=== PATIENT | male | born 1990 | race Caucasian/White ===

== ENCOUNTER 2017-04-22 14:16 | Emergency (ER) | payer SELFPAY ==
[~2017-04-22] VITALS: Ht 193 cm; Wt 72.6 kg
[~2017-04-22 14:16] MED LIST: DIAZ5TAB4 PO; DIVA500T2 PO
[2017-04-22 14:18] VITALS: BP 126/85
[2017-04-22] MEDS ORDERED: IBUP-1007 PO (14:31)
[2017-04-22] MEDS ORDERED: CLIN150C14 PO (14:31)
[2017-04-22] MEDS ORDERED: HYDR-971 PO (14:31)
[2017-04-22] MEDS ORDERED: CHLO15MO2 PO (14:31)
--- NOTE | 2017-04-22 14:43 | PHYS DOC ---
Past Medical History Past Medical History: Bipolar, Schizophrenia, Other Additional Past Medical Histor: MS, Enlarged heart Past Surgical History: Other Additional Past Surgical Histo: shoulders Alcohol Use: Occasionally Drug Use: None Adult General Chief Complaint Chief Complaint: DENTAL PROBLEM HPI HPI Patient is a 26 year old male who presents with right lower dental pain of 3 days. Patient has poor dentition with a tooth that recently fractured off at the gumline. Patient had a fever yesterday, no fever today, not taking pain medicine at home, no active dentist. Review of Systems Review of Systems Constitutional: Denies fever or chills [] Eyes: Denies eye pain [] HENT: Denies nasal congestion or sore throat [] Respiratory: Denies cough or shortness of breath [] Cardiovascular: Denies chest pain GI: Denies abdominal pain, nausea, vomiting, or change in stools : Denies dysuria or hematuria [] Musculoskeletal: Denies back pain Integument: Denies rash Neurologic: Denies headache, focal weakness or sensory changes [] Allergies Allergies Allergies Coded Allergies Type Severity Reaction Last Updated Verified codeine Allergy Intermediate 07/20/14 Yes fentanyl Allergy Intermediate 07/20/14 Yes prednisone Allergy Intermediate 07/20/14 Yes Physical Exam Physical Exam Constitutional: Well developed, well nourished, no acute distress, non-toxic appearance. [] HENT: Normocephalic, atraumatic, bilateral external ears normal, oropharynx moist, right lower gum edema without focal fluctuance, erythema noted, no trismus, poor dentition throughout Eyes: PERRLA, EOMI, conjunctiva normal, no discharge. [] Neck: Normal range of motion, no tenderness, supple, no stridor. [] Cardiovascular:Heart rate regular rate Lungs & Thorax: No respiratory distress Neurologic: Alert and oriented X 3, normal motor function, normal sensory function, no focal deficits noted. [] Psychologic: Affect normal, judgement normal, mood normal. [] Current Patient Data Vital Signs Vital Signs Date Time Temp Pulse Resp B/P (MAP) Pulse Ox O2 Delivery O2 Flow Rate FiO2 04/22/17 14:18 98.2 95 16 98 Room Air 98.2 EKG EKG [] Radiology/Procedures Radiology/Procedures [] Course & Med Decision Making Course & Med Decision Making Pertinent Labs and Imaging studies reviewed. (See chart for details) No localized abscess appreciated, though likely present. We'll treat with by mouth clindamycin as patient has penicillin allergy. Patient was given Peridex and ibuprofen with few [place] for breakthrough pain, dental resource list given. Dragjennifer Disclaimer Matthew Disclaimer This electronic medical record was generated, in whole or in part, using a voice recognition dictation system. Departure Departure Impression: Primary Impression: Dental infection Disposition: 01 HOME, SELF-CARE Condition: STABLE Patient Instructions: Dental Abscess, Dental Caries-Brief Scripts Chlorhexidine Gluconate (PERIDEX) 15 Ml Mouthwash 15 ML PO BID, #473 ML swish for 30 sec and spit Prov: ALPA TEMPLE MD 04/22/17 Clindamycin Hcl (CLINDAMYCIN HCL) 150 Mg Capsule 450 MG PO TID for 10 Days, #90 CAP Prov: ALPA TEMPLE MD 04/22/17 Hydrocodone/Apap 5-325 (NORCO 5-325 TABLET) 1 Each Tablet 1-2 EACH PO PRN Q6HRS Y for breakthrough pain, #156 as needed for pain Prov: ALPA TEMPLE MD 04/22/17 Ibuprofen (IBUPROFEN) 600 Mg Tablet 600 MG PO PRN Q6HRS Y for PAIN, #20 TAB take with food or milk Prov: ALPA TEMPLE MD 04/22/17 ALPA TEMPLE MD Apr 22, 2017 14:43
== END 2017-04-22 14:34 | disposition home or self-care (01) ==
LOC: ER 14:16
DX: K04.7 Periapical abscess without sinus (principal); F20.9 Schizophrenia, unspecified; F31.9 Bipolar disorder, unspecified; G35 Multiple sclerosis; I51.7 Cardiomegaly; Z88.5 Allergy status to narcotic agent; Z88.8 Allergy status to other drugs, medicaments and biological substances; Z88.4 Allergy status to anesthetic agent
CPT/HCPCS: 99283

== ENCOUNTER 2020-09-02 15:55 | Inpatient (IN) | payer SELFPAY ==
[~2020-09-02] VITALS: Ht 175.3 cm; Wt 73.3 kg
[~2020-09-02 15:55] MED LIST changes: +CHLO15MO2 PO; +CLIN150C15 PO; +HYDR-3164 PO; +IBUP-1007 PO
[2020-09-02] MEDS ORDERED: diphenhydrAMINE 50 MG/ML VIAL ONE (16:12)
[2020-09-02] MEDS ORDERED: HALOPERIDOL LACTATE 5 MG/ML VIAL. ONE (16:12)
[2020-09-02] MEDS ORDERED: HALOPERIDOL LACTATE 5 MG/ML VIAL. IVP ONE (16:30)
[2020-09-02] MEDS ORDERED: diphenhydrAMINE 50 MG/ML VIAL IVP ONE ×2 (16:30→19:45)
[2020-09-02] MEDS ORDERED: IV NORMAL SALINE 1000ML BAG 1,000 ML IV ONE (16:30)
[2020-09-02 16:33] LABS: BASO # 0.1 x10^3/uL (0.0-0.2); BASO % 1 % (0-3); EOS % 0 % (0-3); HEMATOCRIT 41.4 % (39.0-53.0); HEMOGLOBIN 14.3 g/dL (13.0-17.5); LYMPH # 1.3 x10^3/uL (1.0-4.8); LYMPH % 10 % (24-48); MEAN CORPUSCULAR HEMOGLOBIN 31 pg (25-35); MEAN CORPUSCULAR HGB CONC 35 g/dL (31-37); MEAN CORPUSCULAR VOLUME 89 fL (79-100); MONO % 7 % (0-9); NEUT # 10.9 x10^3/uL (1.8-7.7); NEUT % 82 % (31-73); PLATELET COUNT 275 x10^3/uL (140-400); RED BLOOD COUNT 4.63 x10^6/uL (4.30-5.70); RED CELL DISTRIBUTION WIDTH 13.7 % (11.5-14.5); WHITE BLOOD COUNT 13.3 x10^3/uL (4.0-11.0)
--- NOTE | 2020-09-02 16:34 | PHYS DOC ---
Past Medical History Past Medical History: Bipolar, Schizophrenia, Other Additional Past Medical Histor: MS, Enlarged heart Past Surgical History: Other Additional Past Surgical Histo: shoulders Smoking Status: Current Every Day Smoker Alcohol Use: Occasionally Drug Use: None General Adult EDM: Chief Complaint: SUBSTANCE ABUSE HPI: HPI: 29-year-old male past medical history of schizophrenia, presents to the ED brought in by EMS after patient was found acting bizarre at work and removing his pants. Patient was combative and required PD to physically restrain. IV was placed and patient was given 250 mg ketamine IV. told EMS patient has been off his psych medications for a while and that this behavior started yesterday. EMS reports suspected K2 & methamphetamines. Review of Systems: Review of Systems: Unobtainable due to mental status Heart Score: Risk Factors: Risk Factors: DM, Current or recent (<one month) smoker, HTN, HLP, family history of CAD, obesity. Risk Scores: Score 0 - 3: 2.5% MACE over next 6 weeks - Discharge Home Score 4 - 6: 20.3% MACE over next 6 weeks - Admit for Clinical Observation Score 7 - 10: 72.7% MACE over next 6 weeks - Early Invasive Strategies Current Medications: Current Medications Medications (Trade) Dose Ordered Sig/Irena Start Time Stop Time Status Last Admin Dose Admin Diphenhydramine HCl (Benadryl) 50 mg 1X ONCE 09/02/20 16:30 09/02/20 16:31 Haloperidol Lactate (Haldol Inj) 10 mg 1X ONCE 09/02/20 16:30 09/02/20 16:31 Sodium Chloride 1,000 ml @ 1,000 mls/hr 1X ONCE 09/02/20 16:30 09/02/20 17:29 Allergies: Allergies: Allergies Coded Allergies Type Severity Reaction Last Updated Verified codeine Allergy Intermediate 07/20/14 Yes fentanyl Allergy Intermediate 07/20/14 Yes prednisone Allergy Intermediate 07/20/14 Yes Physical Exam: PE: Constitutional: Unkept, disheveled appearance, warm to the touch, does follow some commands -sticks tongue out, shakes head left/right when asks if he's in any pain HENT: No obvious hematoma, small amounts of blood on patient's pillow, dried blood around both nares/lips, no septal hematoma, very dry mucous membranes Eyes: PERRLA, vertical nystagmus, EOMI, conjunctiva normal, Neck: Normal range of motion, supple, Cardiovascular: S1/2 present, tachycardic Lungs & Thorax: Speaking in full sentences, bilateral equal chest rise, no tachypnea or increased work of breathing Abdomen: soft, no tenderness, Skin: Warm/hot to the touch, one small abrasion over back, no diaphoresis, large scar vertical over right scapula Back: No midline step offs, no CVA tenderness. [] Extremities: No tenderness, no cyanosis, no lower extremity edema Neurologic: [id number] = GCS12 alert and oriented X 3, normal motor function, normal sensory function, no focal deficits noted. [] Psychologic: writhing movements/kicking in stretcher, agitated/delirious, cannot verbally de-escalate EKG: EKG: [] Radiology/Procedures: Radiology/Procedures: IMAGING REPORT Signed PATIENT: MAINE QUIJANO ACCOUNT: [id number] : 1990 LOCATION: ER AGE: 29 SEX: M EXAM STATUS: PRE ER ORD. PHYSICIAN: BERNARDA THORPE DO REASON: ams PROCEDURE: CT HEAD AND CERVICAL SPINE WO Exam: CT head and cervical spine without contrast INDICATION: Altered mental status TECHNIQUE: Sequential axial images through the head and cervical spine were obtained without the administration of IV contrast. Comparisons: None FINDINGS: Head: No focal parenchymal lesion or hemorrhage is identified. There is no midline shift or sulcal effacement. No acute vascular territory infarction is identified. Sung-white distinction is preserved. The ventricular system is within normal limits without compression hydr ocephalus. The basal cisterns are well maintained. The visualized portions of the paranasal sinuses and mastoid air cells are well- pneumatized. No acute fractures. Cervical spine: Straightening of cervical spine which may positional. Vertebral body heights are well-maintained. Fracture to the cervical spine is not identified. Multilevel spondylotic change in cervical spine with degenerative disc disease greatest at C5-C6. Visualized paraspinal soft tissues are unremarkable. IMPRESSION: 1. No acute intracranial abnormality. 2. Negative CT C-spine for acute traumatic injury. Exposure: One or more of the following in the visualized dose reduction techniques were utilized for this examination: 1. Automated exposure control 2. Adjustment of the MA and/or KV according to patient size Use of iterative of reconstructive technique Electronically signed by: Kati Mares MD (09/02/2020 5:37 PM) [facility] DICTATED and SIGNED BY: KATI MARES MD DATE: 09/02/20 [id number] IMAGING REPORT Signed PATIENT: MAINE QUIJANO ACCOUNT: [id number] : 1990 LOCATION: ER AGE: 29 SEX: M EXAM STATUS: PRE ER ORD. PHYSICIAN: BERNARDA THORPE DO REASON: ams PROCEDURE: CHEST AP ONLY XR CHEST 1V Clinical Indication: Reason: ams Comparison: AP chest September 14, 2012. Findings: The cardiomediastinal silhouette is normal. Lungs are clear. There is no pneumothorax. No pleural effusion is appreciated. No acute bone abnormality. Redemonstrated cerclage wires of posterior ribs bilaterally, third through seventh ribs. Right seventh rib cerclage wires are fractured. IMPRESSION: No acute cardiopulmonary process. Electronically signed by: Gregory Bond MD (09/02/2020 5:59 PM) [facility] DICTATED and SIGNED BY: GREGORY BOND MD DATE: 09/02/20 [id number] Impression: 1700: Pt seen running in ed. Had been sedated upon transfer to ct scanner. Now awake and not directable. Code sung called. Patient was restrained back to his room. Patient asked where he is and nods his head yes to using methamphetamine today. Another IV was placed (patient removed the first 1) and 5 mg Versed IV was given. Patient was placed on cardio monitor with pulse oximetry. Patient was then transferred immediately to CAT scan. Course & Med Decision Making: Course & Med Decision Making Pertinent Labs and Imaging studies reviewed. (See chart for details) Concern for acute agitated delirium secondary to polysubstance abuse (meth/amp, benzo, marijuana) with underlying schizophrenia that required sedation protocol. Labs show rhabdomyolysis and acute kidney injury. Patient was started on IV fluids and will admit for further medical management on one-to-one close observation for his safety until patient has medical decision-making capacity or has had a PAT team assessment. Matthew Disclaimer: Matthew Disclaimer: This electronic medical record was generated, in whole or in part, using a voice recognition dictation system. Departure Departure Impression: Primary Impression: Agitation requiring sedation protocol Additional Impressions: Schizophrenia Noncompliance with medications Rhabdomyolysis Acute kidney injury Disposition: 09 ADMITTED INPT THIS HOSP Admitting Physician: RANCHO (Dr. Flanagan) Condition: STABLE Referrals: NO PCP (PCP) BERNARDA THORPE DO Sep 02, 2020 16:34
[2020-09-02 16:42] LABS: BARBITURATES NEG (NEG); BENZODIAZEPINES POS (NEG); CANNABINOIDS POS (NEG); COCAINE NEG (NEG); METHADONE NEG (NEG); OPIATES NEG (NEG); PHENCYCLIDINE NEG (NEG)
[2020-09-02 16:45] LABS: AMPHETAMINE/METHAMPHETAMINE POS (NEG)
[2020-09-02 16:51] LABS: CALCIUM 8.8 mg/dL (8.5-10.1); CREATININE 1.4 mg/dL (0.7-1.3); GFR 59.1; POTASSIUM 3.1 mmol/L (3.5-5.1)
[2020-09-02] MEDS ORDERED: MIDAZOLAM HCL/PF 5 MG/5 ML VIAL. ONE (16:54)
[2020-09-02] MEDS ORDERED: MIDAZOLAM HCL/PF 5 MG/5 ML VIAL. NS ONE (17:00)
[2020-09-02 17:07] LABS: ALBUMIN/GLOBULIN RATIO 1.3 (1.0-1.7); TOTAL BILIRUBIN 1.2 mg/dL (0.2-1.0)
--- NOTE | 2020-09-02 17:39 | RAD ---
Exam: CT head and cervical spine without contrast INDICATION: Altered mental status TECHNIQUE: Sequential axial images through the head and cervical spine were obtained without the admi nistration of IV contrast. Comparisons: None FINDINGS: Head: No focal parenchymal lesion or hemorrhage is identified. There is no midline shift or sulcal effaceme nt. No acute vascular territory infarction is identified. Sung-white distinction is preserved. The ventricular system is within normal limits without compression hydrocephalus. The basal cisterns are well maintained. The visualized portions of the paranasal sinuses and mastoid air cells are well-pneumatized. No acute fractures. Cervical spine: Straightening of cervical spine which may positional. Vertebral body heights are well-maintained. Fracture to the cervical spine is not identified. Multilevel spondylotic change in cervical spine with degenerative disc disease greatest at C5-C6. Visualized paraspinal soft tissues are unremarkable. IMPRESSION: 1. No acute intracranial abnormality. 2. Negative CT C-spine for acute traumatic injury. Exposure: One or more of the following in the visualized dose reduction techniques were utilized for this examination: 1. Automated exposure control 2. Adjustment of the MA and/or KV according to patient size Use of iterative of reconstructive technique Electronically signed by: Kati Starr MD (09/02/2020 5:37 PM) [facility]
--- NOTE | 2020-09-02 18:02 | RAD ---
XR CHEST 1V Clinical Indication: Reason: ams Comparison: AP chest September 14, 2012. Findings: The cardiomediastinal silhouette is normal. Lungs are clear. There is no pneumothorax. No pleural eff usion is appreciated. No acute bone abnormality. Redemonstrated cerclage wires of posterior ribs bila terally, third through seventh ribs. Right seventh rib cerclage wires are fractured. IMPRESSION: No acute cardiopulmonary process. Electronically signed by: Gregory Bond MD (09/02/2020 5:59 PM) [facility]
[2020-09-02] MEDS ORDERED: ONDANSETRON PF 4 MG/2 ML VIAL. IV PRN (18:15)
[2020-09-02] MEDS ORDERED: OLANZapine IM 10 MG VIAL. IM ONE ×2 (19:43→20:00)
[2020-09-02] MEDS ORDERED: HALOPERIDOL LACTATE 5 MG/ML VIAL. IM ONE (19:45)
--- NOTE | 2020-09-02 21:25 | NUR ---
ADMISSION NOTE: Patient arrived to room 670 via gurney accompanied by security staff x2 and ED staff x1. Patient restrained to gurney. Patient transferred to room bed, restraints reapplied, tele monitor applied. Patient calm at this time, eyes closed. Will page MD for further orders.
[2020-09-02 21:30] VITALS: BP 113/71
--- NOTE | 2020-09-02 21:50 | NUR ---
Patient's restraints removed at approximately this time per verbal MD order (Dr. Flanagan).
[2020-09-02] MEDS ORDERED: ZIPRASIDONE IM 20 MG VIAL. IM PRN (22:30)
--- NOTE | 2020-09-02 22:45 | HP ---
ADMIT DATE: 09/02/2020 CHIEF COMPLAINT: Substance abuse. HISTORY OF PRESENT ILLNESS: The patient is a pleasant 29-year-old male who has schizophrenia, presented to the ER with substance abuse. He was combative and required police department to physically restrain him. While in the ER, he got 250 mg of IV ketamine and then we had to put him in restraints. We have now given him IM Zyprexa 10 mg and that seems to have helped quite a bit. We have also ordered some Ativan and some Geodon. He has already gotten some Benadryl. Basically, he is now being examined on the medical floor, where we are hoping to get him out of the restraints. He is much more calm now; in fact, he is sleeping. PAST MEDICAL HISTORY: Bipolar and schizophrenia, substance abuse, enlarged heart, shoulder surgery, tobacco abuse. ALLERGIES: CODEINE, FENTANYL AND PREDNISONE. FAMILY HISTORY: Drug abuse. SOCIAL HISTORY: He smokes, drinks and takes drugs. MEDICATIONS: Reviewed, please refer to the MRAD. REVIEW OF SYSTEMS: Unable to obtain, he is sleeping. PHYSICAL EXAMINATION: VITALS: Within normal limits and are stable. GENERAL: He is sleeping. HEENT: Normal cephalic atraumatic, external auditory canals are patent EYES: Extraocular muscles are intact, pupils are equally round and reactive to light and accommodation MUSCULOSKELETAL: Well developed, well nourished, good range of motion ENDOCRINE: No thyromegaly was palpated LYMPHATICS: No cervical chain or axillary nodes were noted HEMATOPOIETIC: No bruising NECK: Supple, no JVD, no thyromegaly was noted. LUNGS: Clear to auscultation in all lung morris without rhonchi or wheezing. HEART: RRR, S1, S2 present. Peripheral pulses intact, no obvious murmurs were noted. ABDOMEN: Soft, nontender. Positive bowel sounds no organomegaly, normal bowel sounds. EXTREMITIES: Without any cyanosis, clubbing, or edema. Pedal pulses intact, Homans sign is negative. NEUROLOGIC: He is sleeping. PSYCHIATRIC: He is sleeping. SKIN: No ulcerations or rashes, good skin turgor, no jaundice. VASCULAR: Good capillary refill, neurovascular bundle appears to be intact. LABORATORY DATA: His white count is 13.3. Potassium 3.1. ASSESSMENT AND PLAN: Resolving psychosis and hypokalemia. The patient will be admitted. We will replace his potassium, IV fluids, mini Marks, mini Saavedra, mini Curry, mini [place], mini Evans and tomorrow, we will start backing off on some of the meds and have him wake up and see if he feels better. SALLY FORRESTER DO DR: GINO/catrachita JOB#: [id number] / [id number]
[2020-09-02 22:53] VITALS: BP 115/68
[2020-09-03 03:00] VITALS: BP 122/71
[2020-09-03] MEDS: IV NORMAL SALINE 1000ML BAG 1,000 ML IV SCH ×2 (03:35→14:15)
--- NOTE | 2020-09-03 05:52 | NUR ---
Patient has been obtunded entire shift, unable to complete admission questionnaire. Will pass along info to day RN.
[2020-09-03] MEDS: OLANZapine IM 10 MG VIAL. IM SCH ×3 (06:00→22:00)
[2020-09-03 07:00] VITALS: BP 114/61
--- NOTE | 2020-09-03 10:30 | PDOC ---
PROGRESS NOTES Date of Service: DATE: 09/03/20 TIME: 10:27 Chief Complaint Chief Complaint acute toxic encephalopathy Resolving psychosis, hx schizophrenia COVID isolation, PUI hypokalemia. History of Present Illness History of Present Illness reolaced, his potassium, IV fluids, p.r.n. Selina, p.r.n. today he is much more pleasant, overnight he has had 2 CODE gutierrez issues, security called, he needed 4 pt restraints, better now, sleepy, has drank some juice will cont IV fluid, change to D5 half with K Vitals Vitals Vital Signs Date Time Temp Pulse Resp B/P (MAP) Pulse Ox O2 Delivery O2 Flow Rate FiO2 09/03/20 07:00 97.6 71 18 114/61 (78) 99 Room Air 97.6 Physical Exam General: Alert, Cooperative, Other Heart: Regular rate Lungs: Clear, Wheezing Abdomen: Soft Extremities: No clubbing Skin: No rashes, No breakdown Labs LABS Laboratory Tests Test 09/02/20 16:00 09/02/20 16:05 White Blood Count 13.3 x10^3/uL (4.0-11.0) Red Blood Count 4.63 x10^6/uL (4.30-5.70) Hemoglobin 14.3 g/dL (13.0-17.5) Hematocrit 41.4 % (39.0-53.0) Mean Corpuscular Volume 89 fL (79-100) Mean Corpuscular Hemoglobin 31 pg (25-35) Mean Corpuscular Hemoglobin Concent 35 g/dL (31-37) Red Cell Distribution Width 13.7 % (11.5-14.5) Platelet Count 275 x10^3/uL (140-400) Neutrophils (%) (Auto) 82 % (31-73) Lymphocytes (%) (Auto) 10 % (24-48) Monocytes (%) (Auto) 7 % (0-9) Eosinophils (%) (Auto) 0 % (0-3) Basophils (%) (Auto) 1 % (0-3) Neutrophils # (Auto) 10.9 x10^3/uL (1.8-7.7) Lymphocytes # (Auto) 1.3 x10^3/uL (1.0-4.8) Monocytes # (Auto) 1.0 x10^3/uL (0.0-1.1) Eosinophils # (Auto) 0.0 x10^3/uL (0.0-0.7) Basophils # (Auto) 0.1 x10^3/uL (0.0-0.2) Sodium Level 142 mmol/L (136-145) Potassium Level 3.1 mmol/L (3.5-5.1) Chloride Level 105 mmol/L (98-107) Carbon Dioxide Level 25 mmol/L (21-32) Anion Gap 12 (6-14) Blood Urea Nitrogen 17 mg/dL (8-26) Creatinine 1.4 mg/dL (0.7-1.3) Estimated GFR (Cockcroft-Gault) 59.1 BUN/Creatinine Ratio 12 (6-20) Glucose Level 85 mg/dL (70-99) Calcium Level 8.8 mg/dL (8.5-10.1) Total Bilirubin 1.2 mg/dL (0.2-1.0) Aspartate Amino Transf (AST/SGOT) 99 U/L (15-37) Alanine Aminotransferase (ALT/SGPT) 61 U/L (16-63) Alkaline Phosphatase 62 U/L (46-116) Creatine Kinase 4458 U/L (39-308) Total Protein 7.0 g/dL (6.4-8.2) Albumin 4.0 g/dL (3.4-5.0) Albumin/Globulin Ratio 1.3 (1.0-1.7) Ethyl Alcohol Level < 10 mg/dL (0-10) Urine Opiates Screen Neg (NEG) Urine Methadone Screen Neg (NEG) Urine Barbiturates Neg (NEG) Urine Phencyclidine Screen Neg (NEG) Urine Amphetamine/Methamphetamine Pos (NEG) Urine Benzodiazepines Screen Pos (NEG) Urine Cocaine Screen Neg (NEG) Urine Cannabinoids Screen Pos (NEG) Urine Ethyl Alcohol Neg (NEG) Assessment and Plan Assessmemt and Plan Problems Medical Problems: (1) Acute kidney injury Status: Acute (2) Agitation requiring sedation protocol Status: Acute (3) Noncompliance with medications Status: Acute (4) Rhabdomyolysis Status: Acute (5) Schizophrenia Status: Acute Comment Review of Relevant I have reviewed the following items giancarlo (where applicable) has been applied. Labs Laboratory Tests Test 09/02/20 16:00 09/02/20 16:05 White Blood Count 13.3 x10^3/uL (4.0-11.0) Red Blood Count 4.63 x10^6/uL (4.30-5.70) Hemoglobin 14.3 g/dL (13.0-17.5) Hematocrit 41.4 % (39.0-53.0) Mean Corpuscular Volume 89 fL (79-100) Mean Corpuscular Hemoglobin 31 pg (25-35) Mean Corpuscular Hemoglobin Concent 35 g/dL (31-37) Red Cell Distribution Width 13.7 % (11.5-14.5) Platelet Count 275 x10^3/uL (140-400) Neutrophils (%) (Auto) 82 % (31-73) Lymphocytes (%) (Auto) 10 % (24-48) Monocytes (%) (Auto) 7 % (0-9) Eosinophils (%) (Auto) 0 % (0-3) Basophils (%) (Auto) 1 % (0-3) Neutrophils # (Auto) 10.9 x10^3/uL (1.8-7.7) Lymphocytes # (Auto) 1.3 x10^3/uL (1.0-4.8) Monocytes # (Auto) 1.0 x10^3/uL (0.0-1.1) Eosinophils # (Auto) 0.0 x10^3/uL (0.0-0.7) Basophils # (Auto) 0.1 x10^3/uL (0.0-0.2) Sodium Level 142 mmol/L (136-145) Potassium Level 3.1 mmol/L (3.5-5.1) Chloride Level 105 mmol/L (98-107) Carbon Dioxide Level 25 mmol/L (21-32) Anion Gap 12 (6-14) Blood Urea Nitrogen 17 mg/dL (8-26) Creatinine 1.4 mg/dL (0.7-1.3) Estimated GFR (Cockcroft-Gault) 59.1 BUN/Creatinine Ratio 12 (6-20) Glucose Level 85 mg/dL (70-99) Calcium Level 8.8 mg/dL (8.5-10.1) Total Bilirubin 1.2 mg/dL (0.2-1.0) Aspartate Amino Transf (AST/SGOT) 99 U/L (15-37) Alanine Aminotransferase (ALT/SGPT) 61 U/L (16-63) Alkaline Phosphatase 62 U/L (46-116) Creatine Kinase 4458 U/L (39-308) Total Protein 7.0 g/dL (6.4-8.2) Albumin 4.0 g/dL (3.4-5.0) Albumin/Globulin Ratio 1.3 (1.0-1.7) Ethyl Alcohol Level < 10 mg/dL (0-10) Urine Opiates Screen Neg (NEG) Urine Methadone Screen Neg (NEG) Urine Barbiturates Neg (NEG) Urine Phencyclidine Screen Neg (NEG) Urine Amphetamine/Methamphetamine Pos (NEG) Urine Benzodiazepines Screen Pos (NEG) Urine Cocaine Screen Neg (NEG) Urine Cannabinoids Screen Pos (NEG) Urine Ethyl Alcohol Neg (NEG) Laboratory Tests Test 09/02/20 16:00 09/02/20 16:05 White Blood Count 13.3 x10^3/uL (4.0-11.0) Red Blood Count 4.63 x10^6/uL (4.30-5.70) Hemoglobin 14.3 g/dL (13.0-17.5) Hematocrit 41.4 % (39.0-53.0) Mean Corpuscular Volume 89 fL (79-100) Mean Corpuscular Hemoglobin 31 pg (25-35) Mean Corpuscular Hemoglobin Concent 35 g/dL (31-37) Red Cell Distribution Width 13.7 % (11.5-14.5) Platelet Count 275 x10^3/uL (140-400) Neutrophils (%) (Auto) 82 % (31-73) Lymphocytes (%) (Auto) 10 % (24-48) Monocytes (%) (Auto) 7 % (0-9) Eosinophils (%) (Auto) 0 % (0-3) Basophils (%) (Auto) 1 % (0-3) Neutrophils # (Auto) 10.9 x10^3/uL (1.8-7.7) Lymphocytes # (Auto) 1.3 x10^3/uL (1.0-4.8) Monocytes # (Auto) 1.0 x10^3/uL (0.0-1.1) Eosinophils # (Auto) 0.0 x10^3/uL (0.0-0.7) Basophils # (Auto) 0.1 x10^3/uL (0.0-0.2) Sodium Level 142 mmol/L (136-145) Potassium Level 3.1 mmol/L (3.5-5.1) Chloride Level 105 mmol/L (98-107) Carbon Dioxide Level 25 mmol/L (21-32) Anion Gap 12 (6-14) Blood Urea Nitrogen 17 mg/dL (8-26) Creatinine 1.4 mg/dL (0.7-1.3) Estimated GFR (Cockcroft-Gault) 59.1 BUN/Creatinine Ratio 12 (6-20) Glucose Level 85 mg/dL (70-99) Calcium Level 8.8 mg/dL (8.5-10.1) Total Bilirubin 1.2 mg/dL (0.2-1.0) Aspartate Amino Transf (AST/SGOT) 99 U/L (15-37) Alanine Aminotransferase (ALT/SGPT) 61 U/L (16-63) Alkaline Phosphatase 62 U/L (46-116) Creatine Kinase 4458 U/L (39-308) Total Protein 7.0 g/dL (6.4-8.2) Albumin 4.0 g/dL (3.4-5.0) Albumin/Globulin Ratio 1.3 (1.0-1.7) Ethyl Alcohol Level < 10 mg/dL (0-10) Urine Opiates Screen Neg (NEG) Urine Methadone Screen Neg (NEG) Urine Barbiturates Neg (NEG) Urine Phencyclidine Screen Neg (NEG) Urine Amphetamine/Methamphetamine Pos (NEG) Urine Benzodiazepines Screen Pos (NEG) Urine Cocaine Screen Neg (NEG) Urine Cannabinoids Screen Pos (NEG) Urine Ethyl Alcohol Neg (NEG) Medications Current Medications Haloperidol Lactate (Haldol Inj) 5 mg STK-MED ONCE .ROUTE ; Start 09/02/20 at 16:12; Stop 09/02/20 at 16:12; Status DC Diphenhydramine HCl (Benadryl) 50 mg STK-MED ONCE .ROUTE ; Start 09/02/20 at 16:12; Stop 09/02/20 at 16:12; Status DC Haloperidol Lactate (Haldol Inj) 10 mg 1X ONCE IVP Last administered on 09/02/20at 16:37; Start 09/02/20 at 16:30; Stop 09/02/20 at 16:31; Status DC Diphenhydramine HCl (Benadryl) 50 mg 1X ONCE IVP Last administered on 09/02/20at 16:37; Start 09/02/20 at 16:30; Stop 09/02/20 at 16:31; Status DC Sodium Chloride 1,000 ml @ 1,000 mls/hr 1X ONCE IV Last administered on 09/02/20at 16:38; Start 09/02/20 at 16:30; Stop 09/02/20 at 17:29; Status DC Midazolam HCl (Versed) 5 mg 1X ONCE NS Last administered on 09/02/20at 17:19; Start 09/02/20 at 17:00; Stop 09/02/20 at 17:01; Status DC Midazolam HCl (Versed) 5 mg STK-MED ONCE .ROUTE ; Start 09/02/20 at 16:54; Stop 09/02/20 at 16:55; Status DC Ondansetron HCl (Zofran) 4 mg PRN Q8HRS PRN IV NAUSEA/VOMITING; Start 09/02/20 at 18:15; Stop 09/03/20 at 18:14 Sodium Chloride 1,000 ml @ 100 mls/hr Q10H IV Last administered on 09/03/20at 03:35; Start 09/02/20 at 18:15; Stop 09/03/20 at 18:14 Diphenhydramine HCl (Benadryl) 50 mg 1X ONCE IVP ; Start 09/02/20 at 19:45; Stop 09/02/20 at 20:11; Status DC Lorazepam (Ativan Inj) 2 mg 1X ONCE IVP ; Start 09/02/20 at 19:45; Stop 09/02/20 at 20:11; Status DC Haloperidol Lactate (Haldol Inj) 5 mg 1X ONCE IM ; Start 09/02/20 at 19:45; Stop 09/02/20 at 20:11; Status DC Olanzapine (ZyPREXA IM) 10 mg STK-MED ONCE IM ; Start 09/02/20 at 19:43; Stop at 19:44; Status DC Olanzapine (ZyPREXA IM) 10 mg 1X ONCE IM Last administered on 09/02/20at 21:07; Start 09/02/20 at 20:00; Stop 09/02/20 at 20:01; Status DC Lorazepam (Ativan Inj) 4 mg 1X ONCE IVP ; Start 09/02/20 at 20:45; Stop 09/02/20 at 20:46; Status DC Lorazepam (Ativan Inj) 4 mg PRN Q2HR PRN IVP ANXIETY / AGITATION; Start 09/02/20 at 21:45 Olanzapine (ZyPREXA IM) 10 mg Q8HRS IM ; Start 09/03/20 at 06:00 Ziprasidone (Geodon Im) 10 mg PRN BID PRN IM AGITATION; Start 09/02/20 at 22:30 Active Scripts Active Peridex (Chlorhexidine Gluconate) 15 Ml Mouthwash 15 Ml PO BID swish for 30 sec and spit Clindamycin Hcl 150 Mg Capsule 450 Mg PO TID 10 Days [place] 5-325 Tablet (Acetaminophen/Hydrocodone Bitart) 1 Each Tablet 1-2 Each PO PRN Q6HRS PRN as needed for pain Ibuprofen 600 Mg Tablet 600 Mg PO PRN Q6HRS PRN take with food or milk Reported Diazepam 5 Mg Tablet 1 Tab PO TID Depakote (Divalproex Sodium) 500 Mg Tablet. 1 Tab PO BID Vitals/I & O Vital Sign - Last 24 Hours 09/02/20 09/02/20 09/02/20 09/02/20 15:55 15:56 16:26 17:15 Temp 98.9 98.9 Pulse 110 110 95 89 Resp 18 B/P (MAP) 134/80 (98) 134/80 (98) 133/66 (88) 111/66 (81) Pulse Ox 99 100 100 98 O2 Delivery Room Air Room Air Room Air Room Air 09/02/20 09/02/20 09/02/20 09/02/20 17:26 17:56 18:26 19:26 Pulse 87 83 78 84 B/P (MAP) 106/64 (78) 114/69 (84) 123/77 (92) 115/72 (86) Pulse Ox 98 99 100 97 O2 Delivery Room Air Room Air Room Air Room Air 09/02/20 09/02/20 09/02/20 09/02/20 20:26 21:20 21:30 22:53 Temp 97.8 97.5 97.8 97.5 Pulse 70 78 18 Resp 18 18 B/P (MAP) 124/72 (89) 113/71 (85) 115/68 (84) Pulse Ox 100 94 95 O2 Delivery Room Air Room Air Room Air Room Air 09/03/20 09/03/20 03:00 07:00 Temp 97.7 97.6 97.7 97.6 Pulse 80 71 Resp 18 18 B/P (MAP) 122/71 (88) 114/61 (78) Pulse Ox 95 99 O2 Delivery Room Air Room Air Justicifation of Admission Dx: Justifications for Admission: Justification of Admission Dx: Yes (psychosis) KALINA SALGADO MD Sep 03, 2020 10:30
[2020-09-03 11:00] VITALS: BP 118/76
[2020-09-03] MEDS: POTASSIUM CL 20MEQ D5-0.45NACL 1,000 ML IV SCH ×2 (11:32→21:42)
--- NOTE | 2020-09-03 14:50 | NUR ---
SW following for discharge planning. Spoke with RN and reviewed chart. Pt admitted with agitated delirium. Pt has a hx of substance abuse as well as Bipolar and Schizophrenia. Pt positive for Meth and other substances on this admission. Pt combative and requiring restraint and a 1:1 at times. Pt on IV Ativan as well as Geodon and Zyprexa IM. Pt on room air, regular diet, COVID pending. Pt self-pay and [facility] is following. SW completed PAT referral to [facility]. SW following.
[2020-09-03 15:00] VITALS: BP 114/75
[2020-09-03 19:00] VITALS: BP 113/71
[2020-09-03 23:00] VITALS: BP 110/71
[2020-09-04 02:45] VITALS: BP 115/69
[2020-09-04] MEDS: POTASSIUM CL 20MEQ D5-0.45NACL 1,000 ML IV SCH ×2 (05:47→10:30)
[2020-09-04] MEDS: OLANZapine IM 10 MG VIAL. IM SCH (06:00)
[2020-09-04 07:00] VITALS: BP 121/74
--- NOTE | 2020-09-04 09:05 | PDOC ---
PROGRESS NOTES Date of Service: DATE: 09/04/20 TIME: 09:04 Chief Complaint Chief Complaint acute toxic encephalopathy Resolving psychosis, hx schizophrenia COVID isolation, PUI hypokalemia. History of Present Illness History of Present Illness still very sleepy this AM, has not eaten, reports he is not hungry yet, is conversant, but does not try to awaken more to talk to me, tells me he would prefer to go back to sleep Vitals Vitals Vital Signs Date Time Temp Pulse Resp B/P (MAP) Pulse Ox O2 Delivery O2 Flow Rate FiO2 09/04/20 08:30 Room Air 09/04/20 07:00 98.3 77 18 121/74 (90) 97 98.3 Physical Exam General: Alert, Cooperative, Other Heart: Regular rate Lungs: Clear, Wheezing Abdomen: Soft Extremities: No clubbing Skin: No rashes, No breakdown Assessment and Plan Assessmemt and Plan Problems Medical Problems: (1) Acute kidney injury Status: Acute (2) Agitation requiring sedation protocol Status: Acute (3) Noncompliance with medications Status: Acute (4) Rhabdomyolysis Status: Acute (5) Schizophrenia Status: Acute Comment Review of Relevant I have reviewed the following items giancarlo (where applicable) has been applied. Labs Laboratory Tests Test 09/02/20 16:00 09/02/20 16:05 White Blood Count 13.3 x10^3/uL (4.0-11.0) Red Blood Count 4.63 x10^6/uL (4.30-5.70) Hemoglobin 14.3 g/dL (13.0-17.5) Hematocrit 41.4 % (39.0-53.0) Mean Corpuscular Volume 89 fL (79-100) Mean Corpuscular Hemoglobin 31 pg (25-35) Mean Corpuscular Hemoglobin Concent 35 g/dL (31-37) Red Cell Distribution Width 13.7 % (11.5-14.5) Platelet Count 275 x10^3/uL (140-400) Neutrophils (%) (Auto) 82 % (31-73) Lymphocytes (%) (Auto) 10 % (24-48) Monocytes (%) (Auto) 7 % (0-9) Eosinophils (%) (Auto) 0 % (0-3) Basophils (%) (Auto) 1 % (0-3) Neutrophils # (Auto) 10.9 x10^3/uL (1.8-7.7) Lymphocytes # (Auto) 1.3 x10^3/uL (1.0-4.8) Monocytes # (Auto) 1.0 x10^3/uL (0.0-1.1) Eosinophils # (Auto) 0.0 x10^3/uL (0.0-0.7) Basophils # (Auto) 0.1 x10^3/uL (0.0-0.2) Sodium Level 142 mmol/L (136-145) Potassium Level 3.1 mmol/L (3.5-5.1) Chloride Level 105 mmol/L (98-107) Carbon Dioxide Level 25 mmol/L (21-32) Anion Gap 12 (6-14) Blood Urea Nitrogen 17 mg/dL (8-26) Creatinine 1.4 mg/dL (0.7-1.3) Estimated GFR (Cockcroft-Gault) 59.1 BUN/Creatinine Ratio 12 (6-20) Glucose Level 85 mg/dL (70-99) Calcium Level 8.8 mg/dL (8.5-10.1) Total Bilirubin 1.2 mg/dL (0.2-1.0) Aspartate Amino Transf (AST/SGOT) 99 U/L (15-37) Alanine Aminotransferase (ALT/SGPT) 61 U/L (16-63) Alkaline Phosphatase 62 U/L (46-116) Creatine Kinase 4458 U/L (39-308) Total Protein 7.0 g/dL (6.4-8.2) Albumin 4.0 g/dL (3.4-5.0) Albumin/Globulin Ratio 1.3 (1.0-1.7) Ethyl Alcohol Level < 10 mg/dL (0-10) Urine Opiates Screen Neg (NEG) Urine Methadone Screen Neg (NEG) Urine Barbiturates Neg (NEG) Urine Phencyclidine Screen Neg (NEG) Urine Amphetamine/Methamphetamine Pos (NEG) Urine Benzodiazepines Screen Pos (NEG) Urine Cocaine Screen Neg (NEG) Urine Cannabinoids Screen Pos (NEG) Urine Ethyl Alcohol Neg (NEG) Medications Current Medications Haloperidol Lactate (Haldol Inj) 5 mg STK-MED ONCE .ROUTE ; Start 09/02/20 at 16:12; Stop 09/02/20 at 16:12; Status DC Diphenhydramine HCl (Benadryl) 50 mg STK-MED ONCE .ROUTE ; Start 09/02/20 at 16:12; Stop 09/02/20 at 16:12; Status DC Haloperidol Lactate (Haldol Inj) 10 mg 1X ONCE IVP Last administered on 09/02/20at 16:37; Start 09/02/20 at 16:30; Stop 09/02/20 at 16:31; Status DC Diphenhydramine HCl (Benadryl) 50 mg 1X ONCE IVP Last administered on 09/02/20at 16:37; Start 09/02/20 at 16:30; Stop 09/02/20 at 16:31; Status DC Sodium Chloride 1,000 ml @ 1,000 mls/hr 1X ONCE IV Last administered on 09/02/20at 16:38; Start 09/02/20 at 16:30; Stop 09/02/20 at 17:29; Status DC Midazolam HCl (Versed) 5 mg 1X ONCE NS Last administered on 09/02/20at 17:19; Start 09/02/20 at 17:00; Stop 09/02/20 at 17:01; Status DC Midazolam HCl (Versed) 5 mg STK-MED ONCE .ROUTE ; Start 09/02/20 at 16:54; Stop 09/02/20 at 16:55; Status DC Ondansetron HCl (Zofran) 4 mg PRN Q8HRS PRN IV NAUSEA/VOMITING; Start 09/02/20 at 18:15; Stop 09/03/20 at 18:14; Status DC Sodium Chloride 1,000 ml @ 100 mls/hr Q10H IV Last administered on 09/03/20at 03:35; Start 09/02/20 at 18:15; Stop 09/03/20 at 18:14; Status DC Diphenhydramine HCl (Benadryl) 50 mg 1X ONCE IVP ; Start 09/02/20 at 19:45; Stop 09/02/20 at 20:11; Status DC Lorazepam (Ativan Inj) 2 mg 1X ONCE IVP ; Start 09/02/20 at 19:45; Stop 09/02/20 at 20:11; Status DC Haloperidol Lactate (Haldol Inj) 5 mg 1X ONCE IM ; Start 09/02/20 at 19:45; Stop 09/02/20 at 20:11; Status DC Olanzapine (ZyPREXA IM) 10 mg STK-MED ONCE IM ; Start 09/02/20 at 19:43; Stop 09/02/20 at 19:44; Status DC Olanzapine (ZyPREXA IM) 10 mg 1X ONCE IM Last administered on 09/02/20at 21:07; Start 09/02/20 at 20:00; Stop 09/02/20 at 20:01; Status DC Lorazepam (Ativan Inj) 4 mg 1X ONCE IVP ; Start 09/02/20 at 20:45; Stop 09/02/20 at 20:46; Status DC Lorazepam (Ativan Inj) 4 mg PRN Q2HR PRN IVP ANXIETY / AGITATION; Start 09/02/20 at 21:45 Olanzapine (ZyPREXA IM) 10 mg Q8HRS IM ; Start 09/03/20 at 06:00 Ziprasidone (Geodon Im) 10 mg PRN BID PRN IM AGITATION; Start 09/02/20 at 22:30 Potassium Chloride/Dextrose/ Sod Cl 1,000 ml @ 125 mls/hr Q8H IV Last administered on 09/04/20at 05:47; Start 09/03/20 at 10:30 Active Scripts Active Peridex (Chlorhexidine Gluconate) 15 Ml Mouthwash 15 Ml PO BID swish for 30 sec and spit Clindamycin Hcl 150 Mg Capsule 450 Mg PO TID 10 Days [place] 5-325 Tablet (Acetaminophen/Hydrocodone Bitart) 1 Each Tablet 1-2 Each PO PRN Q6HRS PRN as needed for pain Ibuprofen 600 Mg Tablet 600 Mg PO PRN Q6HRS PRN take with food or milk Reported Diazepam 5 Mg Tablet 1 Tab PO TID Depakote (Divalproex Sodium) 500 Mg Tablet. 1 Tab PO BID Vitals/I & O Vital Sign - Last 24 Hours 09/03/20 09/03/20 09/03/20 09/03/20 11:00 15:00 19:00 20:00 Temp 97.7 97.1 97.8 97.7 97.1 97.8 Pulse 18 84 77 Resp 18 18 B/P (MAP) 118/76 (90) 114/75 (88) 113/71 (85) Pulse Ox 100 97 98 O2 Delivery Room Air Room Air Room Air Room Air 09/03/20 09/04/20 09/04/20 09/04/20 23:00 02:45 07:00 08:30 Temp 97.7 97.8 98.3 97.7 97.8 98.3 Pulse 65 68 77 Resp 18 18 18 B/P (MAP) 110/71 (84) 115/69 (84) 121/74 (90) Pulse Ox 98 98 97 O2 Delivery Room Air Room Air Room Air Room Air Intake and Output 09/03/20 09/03/20 09/04/20 15:00 23:00 07:00 Intake Total 560 ml Output Total 400 ml 622 ml Balance 560 ml -400 ml -622 ml Justicifation of Admission Dx: Justifications for Admission: Justification of Admission Dx: Yes (psychosis) KALINA SALGADO MD Sep 04, 2020 09:05
--- NOTE | 2020-09-04 10:49 | PDOC3 ---
Discharge Summary Visit Information Date of Admission: Sep 02, 2020 Date of Discharge: Sep 04, 2020 Final Diagnosis acute toxic encephalopathy Resolving psychosis, hx schizophrenia COVID isolation, PUI, was negative hypokalemia. multisubstance abuse, meth Problems Medical Problems: (1) Acute kidney injury Status: Acute (2) Agitation requiring sedation protocol Status: Acute (3) Noncompliance with medications Status: Acute (4) Rhabdomyolysis Status: Acute (5) Schizophrenia Status: Acute Brief Hospital Course Allergies Allergies Coded Allergies Type Severity Reaction Last Updated Verified codeine Allergy Intermediate 07/20/14 Yes fentanyl Allergy Intermediate 07/20/14 Yes prednisone Allergy Intermediate 07/20/14 Yes Vital Signs Vital Signs Date Time Temp Pulse Resp B/P (MAP) Pulse Ox O2 Delivery O2 Flow Rate FiO2 09/04/20 08:30 Room Air 09/04/20 07:00 98.3 77 18 121/74 (90) 97 98.3 Lab Results Laboratory Tests Test 09/02/20 16:00 09/02/20 16:05 White Blood Count 13.3 x10^3/uL (4.0-11.0) Red Blood Count 4.63 x10^6/uL (4.30-5.70) Hemoglobin 14.3 g/dL (13.0-17.5) Hematocrit 41.4 % (39.0-53.0) Mean Corpuscular Volume 89 fL (79-100) Mean Corpuscular Hemoglobin 31 pg (25-35) Mean Corpuscular Hemoglobin Concent 35 g/dL (31-37) Red Cell Distribution Width 13.7 % (11.5-14.5) Platelet Count 275 x10^3/uL (140-400) Neutrophils (%) (Auto) 82 % (31-73) Lymphocytes (%) (Auto) 10 % (24-48) Monocytes (%) (Auto) 7 % (0-9) Eosinophils (%) (Auto) 0 % (0-3) Basophils (%) (Auto) 1 % (0-3) Neutrophils # (Auto) 10.9 x10^3/uL (1.8-7.7) Lymphocytes # (Auto) 1.3 x10^3/uL (1.0-4.8) Monocytes # (Auto) 1.0 x10^3/uL (0.0-1.1) Eosinophils # (Auto) 0.0 x10^3/uL (0.0-0.7) Basophils # (Auto) 0.1 x10^3/uL (0.0-0.2) Sodium Level 142 mmol/L (136-145) Potassium Level 3.1 mmol/L (3.5-5.1) Chloride Level 105 mmol/L (98-107) Carbon Dioxide Level 25 mmol/L (21-32) Anion Gap 12 (6-14) Blood Urea Nitrogen 17 mg/dL (8-26) Creatinine 1.4 mg/dL (0.7-1.3) Estimated GFR (Cockcroft-Gault) 59.1 BUN/Creatinine Ratio 12 (6-20) Glucose Level 85 mg/dL (70-99) Calcium Level 8.8 mg/dL (8.5-10.1) Total Bilirubin 1.2 mg/dL (0.2-1.0) Aspartate Amino Transf (AST/SGOT) 99 U/L (15-37) Alanine Aminotransferase (ALT/SGPT) 61 U/L (16-63) Alkaline Phosphatase 62 U/L (46-116) Creatine Kinase 4458 U/L (39-308) Total Protein 7.0 g/dL (6.4-8.2) Albumin 4.0 g/dL (3.4-5.0) Albumin/Globulin Ratio 1.3 (1.0-1.7) Ethyl Alcohol Level < 10 mg/dL (0-10) Urine Opiates Screen Neg (NEG) Urine Methadone Screen Neg (NEG) Urine Barbiturates Neg (NEG) Urine Phencyclidine Screen Neg (NEG) Urine Amphetamine/Methamphetamine Pos (NEG) Urine Benzodiazepines Screen Pos (NEG) Urine Cocaine Screen Neg (NEG) Urine Cannabinoids Screen Pos (NEG) Urine Ethyl Alcohol Neg (NEG) Brief Hospital Course Mr. Paul is a 29 old admit for agitation, confusion, delirium, required 4 pt restraint, meds, code lau called twice, he calmed down, slept a lot, better at DC, he declined psych help, denied SI or HI, he does not want meds for his schizophrenia as he feels it makes him worse Discharge Information Condition at Discharge: Improved Follow Up: Weeks Disposition/Orders: D/C to Home Scheduled PRN Ibuprofen (Ibuprofen) 600 Mg Tablet, 600 MG PO PRN Q6HRS PRN for PAIN, #20 take with food or milk Prescribed by: ALPA TEMPLE MD on 04/22/17 1431 Discontinued Medications Chlorhexidine Gluconate (Peridex) 15 Ml Mouthwash, 15 ML PO BID, #473 swish for 30 sec and spit Prescribed by: ALPA TEMPLE MD on 04/22/17 1431 Clindamycin Hcl (Clindamycin Hcl) 150 Mg Capsule, 450 MG PO TID for 10 Days, #90 Prescribed by: ALPA TEMPLE MD on 04/22/17 1431 Diazepam (Diazepam) 5 Mg Tablet, 1 TAB PO TID, #90 (Reported) Entered as Reported by: MAGNOLIA ROMERO on 07/20/14 1425 Hydrocodone/Apap 5-325 (Zoe 5-325 Tablet) 1 Each Tablet, 1-2 EACH PO PRN Q6HRS PRN for breakthrough pain, #156 as needed for pain Prescribed by: ALPA TEMPLE MD on 04/22/17 1431 Patient Instructions Patient Instructions face to face less than 30 minute Justicifation of Admission Dx: Justifications for Admission: Justification of Admission Dx: Yes (psychosis) KALINA SALGADO MD Sep 04, 2020 10:49
[2020-09-04 11:00] VITALS: BP 114/81
--- NOTE | 2020-09-04 12:19 | NUR ---
SW following for discharge planning. Spoke with RN and reviewed chart. Pt COVID negative. Pt cleared by PAT. Pt provided with resources. Pt to discharge home today, self-care. No further SW needs at this time.
--- NOTE | 2020-09-04 12:19 | NUR ---
Pt left unit at approx 1205 by wheelchair via private vehicle. Pt's IV removed without complication, VSS. Discharge paperwork discussed with pt and COVID instructions provided as results are pending. Belongings sent with pt at discharge.
== END 2020-09-04 12:21 | disposition home or self-care (01) | DRG 682 ==
LOC: ER 15:55 → 6 SOUTH 20:05
PROVIDERS: ADMIT Internal Medicine; ATTEND Internal Medicine
DX: N17.9 Acute kidney failure, unspecified (principal); G92 Toxic encephalopathy; M62.82 Rhabdomyolysis; Z20.822 Contact with and (suspected) exposure to COVID-19; F31.9 Bipolar disorder, unspecified; F20.9 Schizophrenia, unspecified; F17.200 Nicotine dependence, unspecified, uncomplicated; F15.10 Other stimulant abuse, uncomplicated; E87.6 Hypokalemia; Z78.9 Other specified health status; Z78.1 Physical restraint status; Z88.4 Allergy status to anesthetic agent; Z88.5 Allergy status to narcotic agent; Z91.14 Patient's other noncompliance with medication regimen; Z88.8 Allergy status to other drugs, medicaments and biological substances
CPT/HCPCS: 36415; 70450; 71045; 72125; 80053; 80307; 82550; 85025; 96361; 96372; 96374; 96375; G0480; J1200; J1630; J2250; J3480; J3490; J7030; U0003; 99285-25; G0378

== ENCOUNTER 2020-10-15 17:59 | Emergency (ER) | payer SELFPAY ==
[~2020-10-15] VITALS: Ht 193 cm; Wt 77.0 kg
[2020-10-15 18:20] VITALS: BP 135/70
--- NOTE | 2020-10-15 18:51 | RAD ---
EXAM: Left elbow, 3 views HISTORY: Pain status post seizure. COMPARISON: None. FINDINGS: 3 views of the left elbow are obtained. There is no acute fracture, dislocation or subluxat ion. There is no elbow effusion. IMPRESSION: No acute osseous finding. Electronically signed by: Laly Tolbert MD (10/15/2020 6:48 PM) [facility] [place]
--- NOTE | 2020-10-15 19:33 | PHYS DOC ---
Past Medical History Past Medical History: Bipolar, Schizophrenia, Other Additional Past Medical Histor: MS, Enlarged heart (MELONY JOHNSTON [employer]) Past Surgical History: Other Additional Past Surgical Histo: shoulders, hernia surgery (MELONY JOHNSTON [employer]) Smoking Status: Current Every Day Smoker Alcohol Use: Occasionally Drug Use: None Social History Narrative: "I USED TO DO METH BUT I HAVEN'T FOR 1 MONTH." (MELONY JOHNSTON [employer]) General Adult EDM: Chief Complaint: ELBOW PROBLEM HPI: HPI: Patient is a 29 year old male with history of bipolar, schizophrenia, who presents to the ED today complaining of 10 out of 10 left elbow pain, symptoms began 1 month ago after an altercation with police. Patient describes the pain as sharp and constant worse on touching the elbow. He is requesting something for pain. (MELONY JOHNSTON [employer]) Review of Systems: Review of Systems: Constitutional: Denies fever or chills. [] Musculoskeletal: Reports left elbow pain. Denies back pain Integument: Denies rash. [] Neurologic: Denies headache, focal weakness or sensory changes. [] Psychiatric: Denies depression or anxiety. [] (MELONY JOHNSTON [employer]) Heart Score: C/O Chest Pain: N/A Risk Factors: Risk Factors: DM, Current or recent (<one month) smoker, HTN, HLP, family hist ory of CAD, obesity. Risk Scores: Score 0 - 3: 2.5% MACE over next 6 weeks - Discharge Home Score 4 - 6: 20.3% MACE over next 6 weeks - Admit for Clinical Observation Score 7 - 10: 72.7% MACE over next 6 weeks - Early Invasive Strategies (MELONY JOHNSTON [employer]) Allergies: Allergies: Allergies Coded Allergies Type Severity Reaction Last Updated Verified codeine Allergy Intermediate 07/20/14 Yes fentanyl Allergy Intermediate 07/20/14 Yes prednisone Allergy Intermediate 07/20/14 Yes (MELONY JOHNSTON [employer]) Physical Exam: PE: Constitutional: Well developed, well nourished, no acute distress, non-toxic appearance. [] Abdomen: Bowel sounds normal, soft, no tenderness, no masses, no pulsatile masses. [] Skin: Warm, dry, no erythema, no rash. [] Back: No tenderness, no CVA tenderness. [] Extremities: Left elbow with no obvious deformity, no bruising, no ecchymosis, full range of motion to the left elbow and left forearm. +2 left radial pulse. Cap refill less than 2 seconds to left fingers. Neurologic: Alert and oriented X 3, normal motor function, normal sensory function, no focal deficits noted. [] Psychologic: Affect normal, judgement normal, mood normal. [] (MELONY JOHNSTON APRN) Current Patient Data: Vital Signs: Vital Signs Date Time Temp Pulse Resp B/P (MAP) Pulse Ox O2 Delivery O2 Flow Rate FiO2 10/15/20 18:20 86 20 135/70 (91) 98 Room Air (MELONY JOHNSTON APRN) EKG: EKG: [] (MELONY JOHNSTON APRN) Radiology/Procedures: Radiology/Procedures: []PROCEDURE: ELBOW LEFT 3V EXAM: Left elbow, 3 views HISTORY: Pain status post seizure. COMPARISON: None. FINDINGS: 3 views of the left elbow are obtained. There is no acute fracture, dislocation or subluxation. There is no elbow effusion. IMPRESSION: No acute osseous finding. Electronically signed by: Laly Tolbert MD (10/15/2020 6:48 PM) [facility] DICTATED and SIGNED BY: LALY TOLBERT MD DATE: 10/15/20 [id number] (MELONY JOHNSTON APRN) Course & Med Decision Making: Course & Med Decision Making Pertinent Labs and Imaging studies reviewed. (See chart for details) This is a 29-year-old male patient presented to the ED today complaining of left elbow pain that began a month ago after an altercation with police. Patient is demanding something for pain. Left elbow x-rays interpreted by radiologist are negative for any acute findings. Discharge to home. Follow-up with orthopedic doctor. As i talking to patient about the plan to be discharged he asked for pain medicine. Informed him he can have naproxen considering this is not an acute condition and the x-rays are negative. He stood up amazingly using the left elbow to raise up from the bed, started saying he does not want no "fucking naproxen.... proceeded to walk out stating using fowl language (MELONY JOHNSTON APRN) Dragon Disclaimer: Dragon Disclaimer: This electronic medical record was generated, in whole or in part, using a voice recognition dictation system. (MELONY JOHNSTON [employer]) Departure Departure Impression: Primary Impression: Left elbow pain Disposition: HOME / SELF CARE / HOMELESS Condition: STABLE Referrals: NO PCP (PCP) Attending Signature Attending Signature I have reviewed the PA/[employer] MACHINE OPERATOR's note and plan of care. I was available for consultation as needed during the patient's visit in the emergency department. I agree with the clinical impression, plan, and disposition. (SILVIA CRUZ DO) MELONY JOHNSTON APRN Oct 15, 2020 19:33 SILVIA CRUZ DO Oct 16, 2020 06:30
== END 2020-10-15 19:31 | disposition home or self-care (01) ==
LOC: ER 17:59
DX: M25.522 Pain in left elbow (principal); F20.9 Schizophrenia, unspecified; F31.9 Bipolar disorder, unspecified; F17.200 Nicotine dependence, unspecified, uncomplicated; Z98.890 Other specified postprocedural states; Z88.5 Allergy status to narcotic agent; Z88.8 Allergy status to other drugs, medicaments and biological substances
CPT/HCPCS: 73080; 99283